=== PATIENT | male | born 1985 | race Caucasian/White ===

== ENCOUNTER 2017-03-04 12:55 | Emergency (ER) | payer MEDICAID, OTHER ==
[~2017-03-04] VITALS: Ht 175.3 cm; Wt 83.5 kg
[2017-03-04 13:16] VITALS: BP_SYST 141
[2017-03-04 15:45] VITALS: BP_SYST 141
== END 2017-03-04 15:45 | disposition home or self-care (01) ==
LOC: SED 12:55
DX: R40.4 Transient alteration of awareness (principal); E11.9 Type 2 diabetes mellitus without complications; R11.2 Nausea with vomiting, unspecified; R41.0 Disorientation, unspecified; Z88.6 Allergy status to analgesic agent
CPT/HCPCS: 70450-TC; 93005; 99284